=== PATIENT | female | born 1995 | race Caucasian/White ===

== ENCOUNTER 2022-06-20 13:17 | Emergency (ER) | payer SELFPAY ==
[~2022-06-20] VITALS: Ht 167.6 cm; Wt 63.5 kg
--- NOTE | 2022-06-20 13:30 | NUR ---
seen and examined by MD Ramos
--- NOTE | 2022-06-20 13:41 | NUR ---
ua collected and sent to lab
[2022-06-20 13:50] LABS: *URINE HCG, QUAL NEGATIVE (NEGATIVE)
--- NOTE | 2022-06-20 13:53 | NUR ---
visual acuity done
[2022-06-20 13:58] VITALS: BP 112/80
--- NOTE | 2022-06-20 13:58 | NUR ---
Patient discharged to home in stable condition. Written and verbal after care instructions given. Patient verbalizes understanding of instructions. Stressed follow up or return to ER for worsening s/s.
== END 2022-06-20 14:00 | disposition home or self-care (01) ==
LOC: ER 13:17
DX: H00.016 Hordeolum externum left eye, unspecified eyelid (principal)
CPT/HCPCS: 84703; A4663